=== PATIENT | male | born 1930 | race Caucasian/White ===

== ENCOUNTER 2016-12-03 13:44 | Inpatient (IN) | payer OTHER ==
[~2016-12-03] VITALS: Ht 170.2 cm; Wt 74.0 kg
[2016-12-03 14:39] LABS: BASOPHIL % 0.3 % (0-2); PLATELET COUNT 198 x10^3mcL (130-400); RED CELL DISTRIBUTION WIDTH 14.2 % (11.5-14.5)
[2016-12-03 14:46] LABS: CALCIUM 8.9 mg/dL (8.5-10.1); CARBON DIOXIDE 25.3 mmol/L (21-32); CHLORIDE SERUM 104 mmol/L (98-107); CREATININE SERUM 1.5 mg/dL (0.7-1.3); GLUCOSE SERUM 133 mg/dL (74-106); POTASSIUM SERUM 3.9 mmol/L (3.5-5.1); SODIUM SERUM 142 mmol/L (136-145)
[2016-12-03 14:50] LABS: ALBUMIN 3.7 g/dL (3.4-5.0); ALKALINE PHOSPHATASE 67 U/L (46-116); ALT/SGPT 42 U/L (16-63); AST/SGOT 99 U/L (15-37); BILIRUBIN TOTAL 1.22 mg/dL (0.20-1.00); TOTAL PROTEIN, SERUM 6.9 g/dL (6.4-8.2)
[2016-12-03 15:04] LABS: UA SPECIFIC GRAVITY >=1.030 (1.005-1.035); microscopic required? YES; urine erythrocyte 3+ (NEGATIVE)
[2016-12-03 17:43] VITALS: BP 157/75
[2016-12-03 17:52] LABS: FREE T4 1.02 ng/dL (0.76-1.46); FREE THYROXINE INDEX 2.1 ug/dL (1.4-4.5); T4(THYROXINE) 5.5 ug/dL (4.7-13.3)
[2016-12-03 18:32] LABS: T3 TOTAL 0.54 ng/mL
[2016-12-03 18:37] LABS: PHOSPHOROUS 3.2 mg/dL (2.5-4.9)
[2016-12-03 19:40] VITALS: BP 151/77
[2016-12-03 21:05] VITALS: BP 151/77
[2016-12-03 23:49] VITALS: BP 134/77
[2016-12-04 03:04] VITALS: BP 105/63
[2016-12-04 07:17] VITALS: BP 116/62
[2016-12-04 07:53] LABS: PLATELET COUNT 182 x10^3mcL (130-400)
[2016-12-04 08:02] LABS: BASOPHIL % 0 % (0-2); RED CELL DISTRIBUTION WIDTH 14.8 % (11.5-14.5)
[2016-12-04 08:04] LABS: CARBON DIOXIDE 24.4 mmol/L (21-32); CHLORIDE SERUM 106 mmol/L (98-107); CREATININE SERUM 1.1 mg/dL (0.7-1.3); GLUCOSE SERUM 181 mg/dL (74-106); MAGNESIUM 1.9 mg/dL (1.8-2.4); PHOSPHOROUS 3.6 mg/dL (2.5-4.9); POTASSIUM SERUM 4.4 mmol/L (3.5-5.1); SODIUM SERUM 141 mmol/L (136-145)
[2016-12-04] MEDS ORDERED: BACLOFEN10 MG PO (11:35)
[2016-12-04] MEDS ORDERED: GABAPENTIN100 M2 PO (11:37)
[2016-12-04] MEDS ORDERED: METFORMIN HCL500 MG PO (11:39)
[2016-12-04] MEDS ORDERED: LOSARTAN POTASS50 M1 PO (11:39)
[2016-12-04] MEDS ORDERED: GLIMEPIRIDE4 M1 PO (11:40)
[2016-12-04] MEDS ORDERED: CLOBETASOL PROP0.05% TOP (11:41)
[2016-12-04] MEDS ORDERED: SYSTANE 0.3-0.1 EACH IO (12:03)
[2016-12-04] MEDS ORDERED: SYSTANE 0.3-0.1 EACH OP (12:04)
[2016-12-04 12:06] VITALS: BP 135/74
[2016-12-04 15:44] VITALS: BP 107/70
[2016-12-04 19:50] VITALS: BP 122/65
[2016-12-04 23:25] VITALS: BP 120/73
[2016-12-05 03:29] VITALS: BP 152/71
[2016-12-05 05:29] LABS: BASOPHIL % 0.1 % (0-2); PLATELET COUNT 188 x10^3mcL (130-400); RED CELL DISTRIBUTION WIDTH 14.6 % (11.5-14.5)
[2016-12-05 05:47] LABS: CARBON DIOXIDE 27.9 mmol/L (21-32); CHLORIDE SERUM 106 mmol/L (98-107); CREATININE SERUM 1.1 mg/dL (0.7-1.3); GLUCOSE SERUM 123 mg/dL (74-106); HDL CHOLESTEROL 47 mg/dL (40-60); POTASSIUM SERUM 4.1 mmol/L (3.5-5.1); SODIUM SERUM 142 mmol/L (136-145); TRIGLYCERIDES 89 mg/dL (<150)
[2016-12-05 05:50] LABS: CHOLESTEROL 90 mg/dL (<200); CHOLESTEROL/HDL RATIO 1.9
[2016-12-05 07:48] VITALS: BP 166/86
[2016-12-05 11:56] VITALS: BP 118/79
[2016-12-05 15:36] VITALS: BP 105/81
[2016-12-05 19:50] VITALS: BP 153/95
[2016-12-05 23:05] VITALS: BP 124/68
[2016-12-06 03:50] VITALS: BP 145/67
[2016-12-06 05:20] LABS: BASOPHIL % 0.1 % (0-2); PLATELET COUNT 175 x10^3mcL (130-400)
[2016-12-06 05:31] LABS: CALCIUM 8.3 mg/dL (8.5-10.1); CARBON DIOXIDE 32.6 mmol/L (21-32); CHLORIDE SERUM 104 mmol/L (98-107); CREATININE SERUM 1.1 mg/dL (0.7-1.3); GLUCOSE SERUM 154 mg/dL (74-106); POTASSIUM SERUM 3.5 mmol/L (3.5-5.1); SODIUM SERUM 141 mmol/L (136-145)
[2016-12-06 08:00] VITALS: BP 118/58
[2016-12-06 11:16] VITALS: Ht 170.2 cm; Wt 74.0 kg
[2016-12-06 18:46] VITALS: BP 119/65
[2016-12-06 21:19] VITALS: BP 119/61
[2016-12-07 06:08] VITALS: BP 147/63
[2016-12-07 08:36] VITALS: BP 114/60; BP 114/609
[2016-12-07 14:03] VITALS: BP 118/67
[2016-12-07 20:58] VITALS: BP 124/61
[2016-12-08 05:31] VITALS: BP 121/52
[2016-12-08 08:16] VITALS: BP 127/65
[2016-12-08 12:58] VITALS: BP 143/72
[2016-12-08 17:02] VITALS: BP 108/54
[2016-12-08 21:16] VITALS: BP 119/69
[2016-12-09] VITALS (7 sets, daily range): BP systolic 104–137; BP diastolic 59–74
[2016-12-09] MEDS ORDERED: LIPI20 PO (15:38)
[2016-12-09] MEDS ORDERED: L40I PO (15:40)
[2016-12-09] MEDS ORDERED: CLOPIDOGREL75 M1 PO (15:41)
[2016-12-09] MEDS ORDERED: ECO81 PO (15:41)
== END 2016-12-09 21:20 | DRG 280 ==
LOC: ED 13:44 → IC 16:08 → DU 16:08 → IC 23:23 → DU 12-06 18:39
PROVIDERS: Emergency Medicine; Internal Medicine Interventional Cardiology; ADMIT Family Medicine
PROC: B211YZZ Fluoroscopy of Multiple Coronary Arteries using Other Contrast (ICD-10-PCS; 2016-12-05)
PROC: B215YZZ Fluoroscopy of Left Heart using Other Contrast (ICD-10-PCS; 2016-12-05)
PROC: B44FZZ3 Ultrasonography of Right Lower Extremity Arteries, Intravascular (ICD-10-PCS; 2016-12-05)
PROC: 4A023N7 Measurement of Cardiac Sampling and Pressure, Left Heart, Percutaneous Approach (ICD-10-PCS; principal; 2016-12-05 13:00)
DX: I21.4 Non-ST elevation (NSTEMI) myocardial infarction (principal); N17.0 Acute kidney failure with tubular necrosis; J96.00 Acute respiratory failure, unspecified whether with hypoxia or hypercapnia; E87.2 Acidosis; J98.11 Atelectasis; E11.65 Type 2 diabetes mellitus with hyperglycemia; E11.40 Type 2 diabetes mellitus with diabetic neuropathy, unspecified; E11.51 Type 2 diabetes mellitus with diabetic peripheral angiopathy without gangrene; E83.51 Hypocalcemia; S00.01XA Abrasion of scalp, initial encounter; M25.511 Pain in right shoulder; I25.10 Atherosclerotic heart disease of native coronary artery without angina pectoris; H54.41 Blindness, right eye, normal vision left eye; K76.0 Fatty (change of) liver, not elsewhere classified; E86.0 Dehydration; Z91.81 History of falling; W18.39XA Other fall on same level, initial encounter; Y93.89 Activity, other specified; Y92.013 Bedroom of single-family (private) house as the place of occurrence of the external cause; Z79.4 Long term (current) use of insulin; Z79.84 Long term (current) use of oral hypoglycemic drugs
CPT/HCPCS: CLHCL; 36600; 82962; 83880; 84439; 94150; 97110-GP; 97116-GP; 97530-GP; C1894; J0132; J0696; J1200; J1644; J1815; J1940; J2001; J2250; J2930; J3010; J7030; J7040; J7050; J7620; Q0092; Q9967